=== PATIENT | female | born 2000 | race Caucasian/White ===

== ENCOUNTER 2021-01-19 05:26 | Observation (INO) ==
[2021-01-19 01:47] LABS: Bacteria,Urine Few per hpf (None-Few); Bilirubin,Urine Negative (Negative); Blood,Urine Negative (Negative); Calcium Oxalate Crystals,Urine Present per hpf; Clarity,Urine Turbid (Clear); Color,Urine Yellow (Yellow); Glucose,Urine (UA) Normal (Normal); Ketones,Urine Trace mg/dL (Negative); Leukocyte Esterase,Urine Negative (Negative); Mucus,Urine Few per lpf (None-Few); Nitrite,Urine Negative (Negative); Protein,Urine 30 mg/dL (Neg-Trace); Specific Gravity,Urine > 1.030 (1.010-1.025); Squamous Epithelial Cell,Urine Moderate per hpf (None-Few)
[2021-01-19 03:07] LABS: Candida DNA Not Detected (Not Detect); Gardnerella DNA Not Detected (Not Detect); Trichomonas DNA Not Detected (Not Detect)
== END 2021-01-19 05:30 | disposition home or self-care (01) ==
LOC: 1NENULAB
PROVIDERS: ADMIT Advanced Practice Midwife; ATTEND Advanced Practice Midwife

== ENCOUNTER → 2021-02-03 19:42 | Observation (INO) ==
[2021-02-03 21:06] LABS: Candida DNA Not Detected (Not Detect); Gardnerella DNA DETECTED (Not Detect); Trichomonas DNA Not Detected (Not Detect)
[2021-02-03 22:10] LABS: Bilirubin,Urine Negative (Negative); Blood,Urine Negative (Negative); Clarity,Urine Clear (Clear); Color,Urine Light-Yellow (Yellow); Glucose,Urine (UA) Normal (Normal); Ketones,Urine Negative (Negative); Leukocyte Esterase,Urine Negative (Negative); Nitrite,Urine Negative (Negative); Protein,Urine Negative (Neg-Trace); Specific Gravity,Urine 1.012 (1.010-1.025); Urobilinogen,Urine Normal (Normal)
== END | disposition home or self-care (01) ==
LOC: 1NENULAB
PROVIDERS: ADMIT Student in an Organized Health Care Education/Training Program; ATTEND Student in an Organized Health Care Education/Training Program

== ENCOUNTER → 2021-02-17 15:25 | Observation (INO) ==
[2021-02-17 08:37] LABS: Basophils % 0.1 %; Eosinophils % 0.1 %; Hematocrit 39.6 % (35.3-44.9); Hemoglobin 13.4 g/dL (11.5-15.4); Immature Granulocytes % 0.5 % (0-4); Lymphocytes # 1.2 K/mcL (0.6-4.6); Lymphocytes % 8.8 %; Mean Corpuscular HGB Conc 33.8 g/dL (31.6-35.5); Mean Corpuscular Hemoglobin 28.2 pg (28.0-33.3); Mean Corpuscular Volume 83.2 fL (83.0-100.0); Mean Platelet Volume 12.3 fL (9.4-12.4); Monocytes # 0.7 K/mcL (0.0-1.3); Monocytes % 5.7 %; Platelet Count 300 K/mcL (140-400); Red Blood Count 4.76 M/mcL (3.82-4.97); Red Cell Distribution Width 14.5 % (11.5-14.5); Segmented Neutrophils % 84.8 %
[2021-02-17 08:46] LABS: Bacteria,Urine Few per hpf (None-Few); Bilirubin,Urine Negative (Negative); Blood,Urine Negative (Negative); Clarity,Urine Clear (Clear); Color,Urine Yellow (Yellow); Glucose,Urine (UA) Normal (Normal); Hyaline Casts,Urine Few per lpf (None Seen); Ketones,Urine Trace mg/dL (Negative); Leukocyte Esterase,Urine Negative (Negative); Mucus,Urine Moderate per lpf (None-Few); Nitrite,Urine Negative (Negative); Protein,Urine 50 mg/dL (Neg-Trace); RBC,Urine 0-3 per hpf (0-3); Specific Gravity,Urine 1.028 (1.010-1.025); Squamous Epithelial Cell,Urine Moderate per hpf (None-Few); Urobilinogen,Urine Normal (Normal)
[2021-02-17 08:54] LABS: Protein/Creatinine Ratio,Urine 0.27 mg/mg (0.00-0.20)
[2021-02-17 08:57] LABS: Alanine Aminotransferase 113 Units/L (7-52); Aspartate Amino Transferase 36 Units/L (13-39); BUN/Creatinine Ratio 14 (6-26); Blood Urea Nitrogen 9 mg/dL (6-20); Lactate Dehydrogenase 136 Units/L (140-271); Uric Acid 5.7 mg/dL (2.3-7.6); eGFR For African Americans > 60; eGFR For Non-African Americans > 60
[~2021-02-17 15:25] MED LIST: Ondansetron 4 MG/2 ML VIAL IM ONE; Ondansetron 4 MG/2 ML VIAL IVP ONE; Ringers Solution, Lactated 1,000 ML IVC SCH; Ringers Solution, Lactated 1,000 ML ONE
== END | disposition home or self-care (01) ==
LOC: 1NENULAB
PROVIDERS: ADMIT Registered Nurse; ATTEND Registered Nurse

== ENCOUNTER 2021-03-05 17:40 | Observation (INO) ==
[2021-03-05] MEDS ORDERED: Isovue-370 500 ML BOTTLE IVP ONE (17:50)
[2021-03-05 17:58] VITALS: BP 142/74
[2021-03-05 18:08] LABS: Basophils % 0.2 %; Eosinophils % 0.3 %; Hematocrit 35.3 % (35.3-44.9); Hemoglobin 11.5 g/dL (11.5-15.4); Immature Granulocytes % 0.3 % (0-4); Lymphocytes % 22.4 %; Mean Corpuscular HGB Conc 32.6 g/dL (31.6-35.5); Mean Corpuscular Hemoglobin 27.6 pg (28.0-33.3); Mean Corpuscular Volume 84.7 fL (83.0-100.0); Mean Platelet Volume 12.1 fL (9.4-12.4); Monocytes # 0.8 K/mcL (0.0-1.3); Monocytes % 8.6 %; Platelet Count 295 K/mcL (140-400); Red Blood Count 4.17 M/mcL (3.82-4.97); Red Cell Distribution Width 14.9 % (11.5-14.5); Segmented Neutrophils % 68.2 %; White Blood Count 8.9 K/mcL (4.3-11.1)
[2021-03-05 18:31] LABS: Alanine Aminotransferase 121 Units/L (7-52); Albumin 3.7 g/dL (3.5-5.7); Albumin/Globulin Ratio 1.1 (1.1-2.2); Alkaline Phosphatase 109 Units/L (34-104); Aspartate Amino Transferase 57 Units/L (13-39); BUN/Creatinine Ratio 17 (6-26); Bilirubin,Direct 0.1 mg/dL (0.0-0.2); Bilirubin,Indirect 0.2 mg/dL (0.0-1.0); Bilirubin,Total 0.3 mg/dL (0.3-1.0); Blood Urea Nitrogen 12 mg/dL (6-20); Calcium 9.5 mg/dL (8.6-10.3); Carbon Dioxide 20 mEq/L (23-29); Chloride 104 mEq/L (98-107); Globulin 3.3 g/dL (2.4-3.5); Glucose 90 mg/dL (70-105); Osmolality,Calculated 287 (280-300); Sodium 139 mEq/L (136-145); Troponin I < 0.03 ng/mL (< 0.04); eGFR For African Americans > 60; eGFR For Non-African Americans > 60
[2021-03-05] MEDS: Acetaminophen 325 MG TABLET PO SCH (22:09)
[2021-03-05 22:12] LABS: INR 1.2; Prothrombin Time 13.3 Seconds (9.4-12.1)
[2021-03-05 22:14] LABS: Activated Partial Thrombo Time 25.6 Seconds (26.0-36.0)
[2021-03-06] MEDS ORDERED: Neosporin OINT 15 GM TUBE TP SCH (02:15)
[2021-03-06] MEDS: Acetaminophen 325 MG TABLET PO SCH ×2 (04:27→13:05)
== END 2021-03-06 19:43 | disposition home or self-care (01) ==
LOC: EMEROOARM 17:40 → 1NENULAB 17:40
PROVIDERS: ADMIT Obstetrics & Gynecology; ATTEND Obstetrics & Gynecology

== ENCOUNTER → 2021-03-11 06:32 | Observation (INO) ==
[2021-03-11 03:14] LABS: Bacteria,Urine Few per hpf (None-Few); Bilirubin,Urine Negative (Negative); Blood,Urine Negative (Negative); Budding Yeast,Urine Few per hpf (None Seen); Clarity,Urine Turbid (Clear); Color,Urine Yellow (Yellow); Glucose,Urine (UA) Normal (Normal); Ketones,Urine Negative (Negative); Leukocyte Esterase,Urine Negative (Negative); Mucus,Urine Few per lpf (None-Few); Nitrite,Urine Negative (Negative); PH,Urine 6.5 pH Units (5.0-8.0); Protein,Urine 30 mg/dL (Neg-Trace); Specific Gravity,Urine 1.029 (1.010-1.025); Squamous Epithelial Cell,Urine Few per hpf (None-Few); Urobilinogen,Urine Normal (Normal)
== END | disposition home or self-care (01) ==
LOC: 1NENULAB
PROVIDERS: ADMIT Student in an Organized Health Care Education/Training Program; ATTEND Student in an Organized Health Care Education/Training Program

== ENCOUNTER 2021-04-03 01:33 | Inpatient (IN) ==
[~2021-04-03 01:33] MED LIST changes: +*HR* Nalbuphine 10 MG/ML AMPUL IV PRN; +Famotidine 20 MG/2 ML VIAL IVP PRN; +Metoclopramide 10 MG/2 ML VIAL IVP PRN; -Ondansetron 4 MG/2 ML VIAL IM ONE; -Ondansetron 4 MG/2 ML VIAL IVP ONE; +Ondansetron 4 MG/2 ML VIAL IVP PRN; -Ringers Solution, Lactated 1,000 ML IVC SCH; -Ringers Solution, Lactated 1,000 ML ONE
[2021-04-03] MEDS ORDERED: Ringers Solution, Lactated 1,000 ML IVC SCH (01:45)
[2021-04-03] MEDS ORDERED: EPHEDrine 50 MG/ML VIAL IVP PRN (02:21)
[2021-04-03] MEDS ORDERED: Naloxone 0.4 MG/ML INJ IVP PRN (02:21)
[2021-04-03] MEDS ORDERED: *HR* FentaNYL (PF) 100 MCG/2 ML VIAL EP ONE (02:21)
[2021-04-03] MEDS ORDERED: Ropivacaine/PF 0.2% 20 ML VIAL EP ONE (02:21)
[2021-04-03] MEDS ORDERED: Ondansetron 4 MG/2 ML VIAL IVP PRN (02:21)
[2021-04-03 02:25] LABS: Amphetamine Screen,Urine Negative ng/mL (Cutoff=1000); Barbiturate Screen,Urine Negative ng/mL (Cutoff=200); Benzodiazepines Screen,Urine Negative ng/mL (Cutoff=200); Cannabinoid Screen,Urine Negative ng/mL (Cutoff = 50); Cocaine Screen,Urine Negative ng/mL (Cutoff= 300); Opiate Screen,Urine Negative ng/mL (Cutoff=300); Phencyclidine Screen,Urine Negative ng/mL (Cutoff=25)
[2021-04-03] MEDS ORDERED: Epidural Premix (fent/bupiv) 110 ML EP SCH (02:30)
[2021-04-03 02:36] LABS: Basophils % 0.2 %; Eosinophils % 0.2 %; Hematocrit 33.4 % (35.3-44.9); Hemoglobin 11.3 g/dL (11.5-15.4); Immature Granulocytes % 0.3 % (0-4); Lymphocytes # 2.3 K/mcL (0.6-4.6); Lymphocytes % 24.4 %; Mean Corpuscular HGB Conc 33.8 g/dL (31.6-35.5); Mean Corpuscular Hemoglobin 28.5 pg (28.0-33.3); Mean Corpuscular Volume 84.1 fL (83.0-100.0); Mean Platelet Volume 13.8 fL (9.4-12.4); Neutrophils # 6.2 K/mcL (1.6-8.9); Platelet Count 225 K/mcL (140-400); Red Blood Count 3.97 M/mcL (3.82-4.97); Red Cell Distribution Width 15.2 % (11.5-14.5); Segmented Neutrophils % 66.9 %; White Blood Count 9.3 K/mcL (4.3-11.1)
[2021-04-03 02:37] LABS: Monocytes # 0.7 K/mcL (0.0-1.3)
[2021-04-03 02:38] LABS: Alanine Aminotransferase 28 Units/L (7-52); Aspartate Amino Transferase 24 Units/L (13-39); BUN/Creatinine Ratio 17 (6-26); Blood Urea Nitrogen 12 mg/dL (6-20); Lactate Dehydrogenase 240 Units/L (140-271); Uric Acid 7.1 mg/dL (2.3-7.6); eGFR For African Americans > 60; eGFR For Non-African Americans > 60
[2021-04-03] MEDS ORDERED: Ropivacaine/PF 0.2% 20 ML VIAL ONE (02:48)
[2021-04-03 03:07] LABS: Anisocytosis 1+ (Not Present); Large Platelets Present (Not Present); Platelet Estimate Normal (Normal); Reactive Lymphocytes Present (Not Present); Smudge Cells Present (Not Present); Toxic Granulation Present (Not Present)
[2021-04-03] MEDS ORDERED: Lidocaine 1% 20 ML MDV ONE (03:12)
[2021-04-03] MEDS ORDERED: Oxytocin 20 units/ LR 1000 mL 20 UNIT/1,000 ML BAG IVC ONE (03:13)
[2021-04-03] MEDS ORDERED: Oxytocin 20 units/ LR 1000 mL 20 UNIT/1,000 ML BAG IVC SCH (07:58)
[2021-04-03] MEDS ORDERED: Lanolin 7 G OINT...G. TP PRN (07:58)
[2021-04-03] MEDS ORDERED: Rho Immune Globulin 1,500 UNIT SYRINGE IM PRN (07:58)
[2021-04-03] MEDS ORDERED: Measles/Mumps/Rubella Vacc 0.5 ML VIAL SQ PRN (07:58)
[2021-04-03] MEDS ORDERED: Benzocaine/Menthol 56 GM AEROSOL SPRAY TP PRN (07:58)
[2021-04-03] MEDS ORDERED: Ondansetron ODT 4 MG TAB.RAPDIS SL SCH (08:00)
[2021-04-03] MEDS ORDERED: NON-FORMULARY MEDICATION 1 EACH EACH (Prenatal Vits96/Iron Fum/Folic [Prenatal Tablet] 1 E PO SCH (09:00)
[2021-04-03] MEDS ORDERED: Fluconazole 150 MG TABLET PO SCH (09:00)
[2021-04-03] MEDS: Acetaminophen 325 MG TABLET PO PRN (09:07)
[2021-04-03] MEDS: Prenatal Vit/FA 1 EACH TABLET PO SCH (09:08)
[2021-04-03] MEDS: Ibuprofen 600 MG TABLET PO PRN ×3 (09:42→21:59)
[2021-04-03] MEDS ORDERED: Ibuprofen 600 MG TABLET PO SCH (12:00)
[2021-04-03 17:53] LABS: Creatinine,Urine 183 mg/dL
[2021-04-03 18:22] LABS: Alanine Aminotransferase 23 Units/L (7-52); Aspartate Amino Transferase 18 Units/L (13-39); BUN/Creatinine Ratio 14 (6-26); Blood Urea Nitrogen 9 mg/dL (6-20); Lactate Dehydrogenase 180 Units/L (140-271); Uric Acid 6.4 mg/dL (2.3-7.6); eGFR For African Americans > 60; eGFR For Non-African Americans > 60
[2021-04-03 18:23] LABS: Basophils % 0.2 %; Eosinophils % 0.1 %; Hematocrit 28.6 % (35.3-44.9); Hemoglobin 9.2 g/dL (11.5-15.4); Immature Granulocytes % 0.3 % (0-4); Lymphocytes # 2.1 K/mcL (0.6-4.6); Lymphocytes % 23.9 %; Mean Corpuscular HGB Conc 32.2 g/dL (31.6-35.5); Mean Corpuscular Hemoglobin 27.8 pg (28.0-33.3); Mean Corpuscular Volume 86.4 fL (83.0-100.0); Mean Platelet Volume 13.4 fL (9.4-12.4); Monocytes # 0.7 K/mcL (0.0-1.3); Monocytes % 8.6 %; Neutrophils # 5.8 K/mcL (1.6-8.9); Nucleated Red Blood Cells 0.2 /100 WBC (0); Platelet Count 209 K/mcL (140-400); Red Blood Count 3.31 M/mcL (3.82-4.97); Red Cell Distribution Width 15.5 % (11.5-14.5); Segmented Neutrophils % 66.9 %; White Blood Count 8.6 K/mcL (4.3-11.1)
[2021-04-04] MEDS: Acetaminophen 325 MG TABLET PO PRN ×2 (02:33→10:16)
[2021-04-04 04:26] LABS: Basophils % 0.1 %; Eosinophils % 0.3 %; Hematocrit 25.7 % (35.3-44.9); Hemoglobin 8.2 g/dL (11.5-15.4); Immature Granulocytes % 0.4 % (0-4); Lymphocytes # 1.6 K/mcL (0.6-4.6); Lymphocytes % 22.2 %; Mean Corpuscular HGB Conc 31.9 g/dL (31.6-35.5); Mean Corpuscular Hemoglobin 27.8 pg (28.0-33.3); Mean Corpuscular Volume 87.1 fL (83.0-100.0); Mean Platelet Volume 12.8 fL (9.4-12.4); Monocytes # 0.5 K/mcL (0.0-1.3); Monocytes % 6.5 %; Neutrophils # 5.2 K/mcL (1.6-8.9); Platelet Count 165 K/mcL (140-400); Red Blood Count 2.95 M/mcL (3.82-4.97); Red Cell Distribution Width 15.7 % (11.5-14.5); Segmented Neutrophils % 70.5 %; White Blood Count 7.4 K/mcL (4.3-11.1)
[2021-04-04] MEDS: Prenatal Vit/FA 1 EACH TABLET PO SCH (07:50)
[2021-04-04] MEDS: Ibuprofen 600 MG TABLET PO PRN (10:16)
[2021-04-04 15:27] VITALS: BP 125/81; PULSE 93; TEMP 98; O2SAT 98
== END 2021-04-04 18:44 | disposition home or self-care (01) | DRG 560 ==
LOC: 1NENULAB → 1NENUOBS 07:59
PROVIDERS: ADMIT Registered Nurse; ATTEND Registered Nurse

== ENCOUNTER → 2022-01-13 00:53 | Observation (INO) ==
[2022-01-13 00:51] LABS: Bacteria,Urine Few per hpf (None-Few); Bilirubin,Urine Negative (Negative); Blood,Urine Negative (Negative); Calcium Oxalate Crystals,Urine Present per hpf; Clarity,Urine Clear (Clear); Color,Urine Yellow (Yellow); Glucose,Urine (UA) Normal (Normal); Ketones,Urine Trace mg/dL (Negative); Leukocyte Esterase,Urine Trace (Negative); Mucus,Urine Few per lpf (None-Few); Nitrite,Urine Negative (Negative); PH,Urine 6.5 pH Units (5.0-8.0); Protein,Urine 50 mg/dL (Neg-Trace); Specific Gravity,Urine > 1.030 (1.010-1.025); Squamous Epithelial Cell,Urine Moderate per hpf (None-Few)
== END | disposition home or self-care (01) ==
LOC: 1NENULAB
PROVIDERS: ADMIT Advanced Practice Midwife; ATTEND Advanced Practice Midwife

== ENCOUNTER → 2022-03-21 01:57 | Observation (INO) ==
[2022-03-21 01:05] LABS: Bilirubin,Urine Negative (Negative); Blood,Urine Negative (Negative); Clarity,Urine Clear (Clear); Color,Urine Yellow (Yellow); Glucose,Urine (UA) Normal (Normal); Ketones,Urine Trace mg/dL (Negative); Leukocyte Esterase,Urine Negative (Negative); Mucus,Urine Few per lpf (None-Few); Nitrite,Urine Negative (Negative); PH,Urine 6.5 pH Units (5.0-8.0); Protein,Urine 50 mg/dL (Neg-Trace); RBC,Urine 0-3 per hpf (0-3); Specific Gravity,Urine > 1.030 (1.010-1.025); Squamous Epithelial Cell,Urine Few per hpf (None-Few); WBC,Urine 0-3 per hpf (0-3)
[2022-03-21 01:07] LABS: Basophils % 0.1 %; Eosinophils % 0.3 %; Hematocrit 29.1 % (35.3-44.9); Hemoglobin 9.6 g/dL (11.5-15.4); Immature Granulocytes % 0.5 % (0-4); Lymphocytes # 2.1 K/mcL (0.6-4.6); Lymphocytes % 23.3 %; Mean Corpuscular Hemoglobin 27.6 pg (28.0-33.3); Mean Corpuscular Volume 83.6 fL (83.0-100.0); Mean Platelet Volume 12.5 fL (9.4-12.4); Monocytes # 0.7 K/mcL (0.0-1.3); Monocytes % 7.3 %; Neutrophils # 6.3 K/mcL (1.6-8.9); Platelet Count 222 K/mcL (140-400); Red Blood Count 3.48 M/mcL (3.82-4.97); Red Cell Distribution Width 15.4 % (11.5-14.5); Segmented Neutrophils % 68.5 %; White Blood Count 9.2 K/mcL (4.3-11.1)
[2022-03-21 01:13] LABS: Protein/Creatinine Ratio,Urine 0.11 mg/mg (0.00-0.20)
[2022-03-21 01:24] LABS: Alanine Aminotransferase 68 Units/L (7-52); Aspartate Amino Transferase 34 Units/L (13-39); BUN/Creatinine Ratio 18 (6-26); Blood Urea Nitrogen 11 mg/dL (6-20); Lactate Dehydrogenase 147 Units/L (140-271); Uric Acid 5.1 mg/dL (2.3-7.6); eGFR For African Americans > 60 (> 60); eGFR For Non-African Americans > 60 (> 60)
[~2022-03-21 01:57] MED LIST changes: -*HR* Nalbuphine 10 MG/ML AMPUL IV PRN; -Famotidine 20 MG/2 ML VIAL IVP PRN; +Metoclopramide 10 MG/2 ML VIAL IVP ONE; -Metoclopramide 10 MG/2 ML VIAL IVP PRN; +Metoclopramide 10 MG/2 ML VIAL ONE; -Ondansetron 4 MG/2 ML VIAL IVP PRN; +Ringers Solution, Lactated 1,000 ML IVC ONE; +Ringers Solution, Lactated 1,000 ML ONE
[2022-03-21 07:33] LABS: Hepatitis B Surface Antigen Nonreactive (Nonreactive)
[2022-03-21 08:01] LABS: Hepatitis C Virus Antibody Nonreactive (Nonreactive)
[2022-03-21 08:02] LABS: Hepatitis B Core IgM Nonreactive (Nonreactive)
[2022-03-21 08:04] LABS: Hepatitis A Antibody IgM Nonreactive (Nonreactive)
== END | disposition home or self-care (01) ==
LOC: 1NENULAB
PROVIDERS: ADMIT Advanced Practice Midwife; ATTEND Advanced Practice Midwife

== ENCOUNTER → 2022-04-12 22:35 | Observation (INO) ==
[2022-04-12 15:55] LABS: Bacteria,Urine Few per hpf (None-Few); Bilirubin,Urine Negative (Negative); Blood,Urine Negative (Negative); Clarity,Urine Turbid (Clear); Color,Urine Yellow (Yellow); Glucose,Urine (UA) Normal (Normal); Ketones,Urine Negative (Negative); Leukocyte Esterase,Urine Moderate (Negative); Mucus,Urine Few per lpf (None-Few); Nitrite,Urine Negative (Negative); Protein,Urine 30 mg/dL (Neg-Trace); RBC,Urine 0-3 per hpf (0-3); Specific Gravity,Urine 1.025 (1.010-1.025); Squamous Epithelial Cell,Urine Moderate per hpf (None-Few); Transitional Epi Cells,Urine Few per hpf (None-Few); Urobilinogen,Urine Normal (Normal)
[~2022-04-12 22:35] MED LIST changes: -Metoclopramide 10 MG/2 ML VIAL IVP ONE; -Metoclopramide 10 MG/2 ML VIAL ONE; +NIFEdipine Immed Rel 10 MG CAPSULE PO ONE; +Ringers Solution, Lactated 1,000 ML IVC SCH; -Ringers Solution, Lactated 1,000 ML ONE
== END | disposition home or self-care (01) ==
LOC: 1NENULAB
PROVIDERS: ADMIT Advanced Practice Midwife; ATTEND Advanced Practice Midwife

== ENCOUNTER → 2022-04-18 21:25 | Observation (INO) ==
[2022-04-18 18:23] LABS: Basophils % 0.1 %; Eosinophils % 0.1 %; Hematocrit 31.5 % (35.3-44.9); Hemoglobin 10.5 g/dL (11.5-15.4); Immature Granulocytes % 0.3 % (0-4); Lymphocytes # 1.8 K/mcL (0.6-4.6); Lymphocytes % 17.8 %; Mean Corpuscular HGB Conc 33.3 g/dL (31.6-35.5); Mean Corpuscular Hemoglobin 27.1 pg (28.0-33.3); Mean Corpuscular Volume 81.2 fL (83.0-100.0); Mean Platelet Volume 12.9 fL (9.4-12.4); Monocytes # 0.6 K/mcL (0.0-1.3); Monocytes % 5.9 %; Neutrophils # 7.5 K/mcL (1.6-8.9); Platelet Count 255 K/mcL (140-400); Red Blood Count 3.88 M/mcL (3.82-4.97); Red Cell Distribution Width 15.6 % (11.5-14.5); Segmented Neutrophils % 75.8 %; White Blood Count 9.8 K/mcL (4.3-11.1)
[2022-04-18 18:29] LABS: Protein/Creatinine Ratio,Urine 0.12 mg/mg (0.00-0.20)
[2022-04-18 18:30] LABS: Bilirubin,Urine Negative (Negative); Blood,Urine Negative (Negative); Clarity,Urine Clear (Clear); Color,Urine Yellow (Yellow); Glucose,Urine (UA) Normal (Normal); Ketones,Urine Trace mg/dL (Negative); Leukocyte Esterase,Urine Moderate (Negative); Mucus,Urine Many per lpf (None-Few); Nitrite,Urine Negative (Negative); PH,Urine 6.5 pH Units (5.0-8.0); Protein,Urine 50 mg/dL (Neg-Trace); RBC,Urine 0-3 per hpf (0-3); Specific Gravity,Urine > 1.030 (1.010-1.025); Squamous Epithelial Cell,Urine Moderate per hpf (None-Few); Urobilinogen,Urine Normal (Normal)
[2022-04-18 18:41] LABS: Alanine Aminotransferase 140 Units/L (7-52); Aspartate Amino Transferase 70 Units/L (13-39); BUN/Creatinine Ratio 15 (6-26); Blood Urea Nitrogen 10 mg/dL (6-20); Lactate Dehydrogenase 178 Units/L (140-271); Uric Acid 6.2 mg/dL (2.3-7.6); eGFR For African Americans > 60 (> 60); eGFR For Non-African Americans > 60 (> 60)
[~2022-04-18 21:25] MED LIST changes: +Metoclopramide 10 MG/2 ML VIAL IVP PRN; -NIFEdipine Immed Rel 10 MG CAPSULE PO ONE; -Ringers Solution, Lactated 1,000 ML IVC ONE; -Ringers Solution, Lactated 1,000 ML IVC SCH; +Ringers Solution, Lactated 500 ML IVC ONE
== END | disposition home or self-care (01) ==
LOC: 1NENULAB
PROVIDERS: ADMIT Advanced Practice Midwife; ATTEND Advanced Practice Midwife

== ENCOUNTER 2022-05-04 03:28 | Inpatient (IN) ==
[2022-05-04] MEDS ORDERED: Ringers Solution, Lactated 1,000 ML ONE ×2 (03:35→04:11)
[2022-05-04] MEDS ORDERED: Famotidine 20 MG/2 ML VIAL IVP PRN (03:35)
[2022-05-04] MEDS ORDERED: Metoclopramide 10 MG/2 ML VIAL IVP PRN (03:35)
[2022-05-04] MEDS ORDERED: Naloxone 0.4 MG/ML INJ IVP PRN (03:35)
[2022-05-04] MEDS ORDERED: *HR* FentaNYL (PF) 100 MCG/2 ML VIAL EP ONE (03:58)
[2022-05-04] MEDS ORDERED: Ropivacaine/PF 0.2% 20 ML VIAL EP ONE (03:58)
[2022-05-04] MEDS ORDERED: EPHEDrine 50 MG/ML VIAL IVP PRN (03:58)
[2022-05-04] MEDS ORDERED: Epidural Premix (fent/bupiv) 110 ML EP SCH (04:00)
[2022-05-04] MEDS ORDERED: Oxytocin 30 UNIT/503 ML BAG IVC ONE (04:02)
[2022-05-04 04:57] LABS: Basophils % 0.1 %; Mean Platelet Volume 13.5 fL (9.4-12.4)
[2022-05-04 04:58] LABS: Eosinophils % 0.3 %; Hematocrit 32.4 % (35.3-44.9); Hemoglobin 10.5 g/dL (11.5-15.4); Immature Granulocytes % 0.2 % (0-4); Immature Platelets 19.1 % (1.1-6.1); Lymphocytes # 2.1 K/mcL (0.6-4.6); Lymphocytes % 23.7 %; Mean Corpuscular HGB Conc 32.4 g/dL (31.6-35.5); Mean Corpuscular Hemoglobin 26.4 pg (28.0-33.3); Mean Corpuscular Volume 81.6 fL (83.0-100.0); Monocytes # 0.7 K/mcL (0.0-1.3); Monocytes % 7.5 %; Platelet Count 222 K/mcL (140-400); Red Blood Count 3.97 M/mcL (3.82-4.97); Red Cell Distribution Width 15.1 % (11.5-14.5); Segmented Neutrophils % 68.2 %; White Blood Count 8.8 K/mcL (4.3-11.1)
[2022-05-04] MEDS ORDERED: Lanolin 7 G OINT...G. TP PRN (08:54)
[2022-05-04] MEDS ORDERED: Ondansetron ODT 4 MG TAB.RAPDIS SL PRN (08:54)
[2022-05-04] MEDS ORDERED: OXYTOCIN/RINGERS LACTATE 10 UNIT/166.6 ML BAG IVC ONE (08:54)
[2022-05-04] MEDS ORDERED: Oxytocin 30 UNIT/503 ML BAG IVC SCH (08:54)
[2022-05-04] MEDS ORDERED: Benzocaine/Menthol 56 GM AEROSOL SPRAY TP PRN (08:54)
[2022-05-04] MEDS ORDERED: Famotidine 20 MG TABLET PO SCH (09:00)
[2022-05-04] MEDS ORDERED: Prenatal Vit/FA 1 EACH TABLET PO SCH (09:00)
[2022-05-04] MEDS: Acetaminophen 325 MG TABLET PO SCH (18:12)
[2022-05-04] MEDS: Ibuprofen 600 MG TABLET PO SCH (18:13)
[2022-05-05] MEDS: Acetaminophen 325 MG TABLET PO SCH (01:48)
[2022-05-05] MEDS: Ibuprofen 600 MG TABLET PO SCH (01:50)
[2022-05-05 07:10] VITALS: BP 129/78; PULSE 56; TEMP 98.1; O2SAT 98
== END 2022-05-05 12:30 | disposition home or self-care (01) | DRG 560 ==
LOC: 1NENULAB → 1NENUOBS 08:31
PROVIDERS: ADMIT Registered Nurse; ATTEND Registered Nurse